=== PATIENT | male | born 1980 | race American Indian/Alaskan Native ===

== ENCOUNTER 2017-06-16 01:46 | Inpatient (IN) | payer SELFPAY ==
[2017-06-16] MEDS ORDERED: NACL 0.9% 1000 ML 1,000 ML IV ONE ×2 (02:17→02:30)
[2017-06-16] MEDS ORDERED: BABY ASPIRIN PO ONE ×2 (02:18→03:55)
--- NOTE | 2017-06-16 02:27 | Emergency Department Report ---
ED Chest Pain HPI - General Stated Complaint: BODYACHE Time Seen by Provider: 06/16/17 02:15 Source: patient Mode of arrival: Wheelchair Limitations: No Limitations - History of Present Illness Initial Comments: 36-year-old male presents to the emergency department through triage with complaint of some midsternal right-sided chest pain that started about one hour prior to presentation. He did not take anything for her symptoms prior to presentation. He is visiting here from [facility], where he has a primary care physician. He denies any other past medical history. He is a tobacco smoker but denies any illicit drug use. He denies any family history of early heart attacks or cardiac events. Heart Score - HEART Score History: Highly suspicious EKG: Significant ST-depression Age: < 45 Risk factors: 1-2 risk factors Troponin: < normal limit HEART Score: 5 - Critical Actions Critical Actions: 4-6 pts:12-16.6% risk of adverse cardiac event. Should be admitted ED Review of Systems ROS: Stated complaint: BODYACHE Other details as noted in HPI Comment: All other systems reviewed and negative Constitutional: denies: chills, fever Eyes: denies: eye pain, eye discharge, vision change ENT: denies: ear pain, throat pain Respiratory: denies: cough, shortness of breath, wheezing Cardiovascular: chest pain Gastrointestinal: nausea, vomiting. denies: abdominal pain, diarrhea Genitourinary: denies: urgency, dysuria Musculoskeletal: denies: back pain, joint swelling, arthralgia Skin: denies: rash, lesions Neurological: denies: headache, weakness, paresthesias ED Past Medical Hx - Past Medical History Previous Medical History?: No - Surgical History Past Surgical History?: Yes Hx Appendectomy: Yes - Social History Smoking Status: Current Some Day Smoker Substance Use Type: Alcohol ED Physical Exam - General Limitations: No Limitations - Other Other exam information: GENERAL: The patient is well-developed well-nourished. Patient appears very uncomfortable. HENT: Normocephalic. Atraumatic. Patient has moist mucous membranes. EYES: Extraocular motions are intact. Pupils equal reactive to light bilaterally. NECK: Supple. Trachea is midline. CHEST/LUNGS: Clear to auscultation. There is no respiratory distress noted. HEART/CARDIOVASCULAR: Regular. There is no tachycardia. There is no murmur. ABDOMEN: Abdomen is soft, nontender. Patient has normal bowel sounds. There is no abdominal distention. SKIN: Skin is warm and dry. NEURO: The patient is awake, alert, and oriented. The patient is cooperative. The patient has no focal neurologic deficits. The patient has normal speech. MUSCULOSKELETAL: There is no tenderness or deformity. There is no limitation range of motion. There is no evidence of acute injury. ED Course Vital Signs 06/16/17 06/16/17 02:22 02:38 Temperature 97.9 F Pulse Rate 95 H 92 H Respiratory 16 26 H Rate Blood Pressure 125/90 125/90 [Right] O2 Sat by Pulse 99 98 Oximetry - Consultations Consultation #1: A code STEMI was called at 2:17 AM. We are attempting to get in touch with the conservation scientist but there have been multiple phone calls made without any answer and the voice mailbox is full as well. We are attempting to get in touch through the cardiology office. 06/16/17 02:26 We were just now able to get in touch with the conservation scientist who looked at the EKG and agrees that appears consistent with STEMI and we'll proceed with getting the patient to the Utilization Supervisor. 06/16/17 02:34 JOSH score - Josh Score Age > 65: (0) No Aspirin use within the Past 7 Days: (0) No 3 or more CAD Risk Factors: (0) No 2 or more Angina events in past 24 hrs: (1) Yes Known CAD with more than 50% Stenosis: (1) Yes Elevated Cardiac Markers: (0) No ST Deviation Greater than 0.5mm: (1) Yes JOSH Score: 3 ED Medical Decision Making - Lab Data Result diagrams: 06/16/17 02:33 06/16/17 02:33 - EKG Data -: EKG Interpreted by Me EKG shows normal: sinus rhythm, axis, intervals, QRS complexes (Q waves to the septal leads), ST-T waves (SC elevation to the anterior and lateral leads there is some ST depression to the inferior leads 3 and aVF) Rate: normal - EKG Data When compared to previous EKG there are: previous EKG unavailable Interpretation: acute MO - Radiology Data Radiology results: image reviewed interpreted by me: Chest x-ray does not show any acute process. There are no pleural effusions, obvious pneumonia and there is no pneumothorax. - Medical Decision Making Patient presents with acute right-sided chest pain. EKG appears consistent with anterolateral ST elevation MO. Chest x-ray did not show any acute process. He was given Plavix 300, aspirin 325 mg, 2 mg of morphine, supplemental oxygen, low dose nitro drip, and a heparin bolus and drip. Once we got in touch with the conservation scientist and the microbiological laboratory technician team was in place, the patient was transferred to the Utilization Supervisor where it appears that he has gotten name balloon angioplasty and drug-eluting stent placement. Patient will go to the ICU. - Differential Diagnosis MO, costochondritis, pneumonia, pneumothorax Critical Care Time: Yes Critical care time in (mins) excluding proc time.: 31 Critical care attestation.: If time is entered above; I have spent that time in minutes in the direct care of this critically ill patient, excluding procedure time. Critical care time was spent on this patient and during his initial evaluation, multiple re-evaluations, ordering an interpretation of labs and imaging, EKG interpretation, managing the code STEMI, discussion with the conservation scientist, discussion with the patient and his family. ED Disposition Clinical Impression: ST elevation (STEMI) myocardial infarction Qualifiers: Involved coronary artery: unspecified coronary artery Qualified Code(s): I21.3 - ST elevation (STEMI) myocardial infarction of unspecified site Chest pain Qualifiers: Chest pain type: chest pain due to myocardial ischemia Ischemic chest pain type : unspecified angina pectoris type Qualified Code(s): I20.9 - Angina pectoris, unspecified Disposition: DC-09 OP ADMIT IP TO THIS HOSP Is pt being admited?: Yes Condition: Serious Instructions: Chest Pain (ED) Time of Disposition: 03:56
[2017-06-16] MEDS ORDERED: TRIDIL DRIP 50MG/250ML 50 MG/250 ML BOTTLE IV ONE (02:30)
[2017-06-16] MEDS ORDERED: MORPHINE IV PRN (02:30)
[2017-06-16] MEDS ORDERED: MORPHINE ONE (02:32)
[2017-06-16] MEDS ORDERED: HEPARIN 10,000 UNITS/10 ML IV ONE (02:38)
--- NOTE | 2017-06-16 02:44 | XRay Report ---
FINAL REPORT EXAM: XR CHEST 1V AP HISTORY: chest pain COMPARISON: None available. FINDINGS: Frontal view(s) of the chest obtained. Cardiac silhouette within normal limits. No gross consolidation or effusion. No pneumothorax. IMPRESSION: No grossly acute findings.
[2017-06-16] MEDS: HEPARIN/ 0.45% NACL-25,000 UNIT/500 ML 25,000 UNIT/500 ML BAG IV SCH (02:45)
[2017-06-16] MEDS ORDERED: TRIDIL DRIP 50MG/250ML 50 MG/250 ML BOTTLE ONE (02:45)
[2017-06-16 02:47] LABS: Hematocrit 44.8 % (35.5-45.6); Hemoglobin 15.4 gm/dl (11.8-15.2); Mean Corpuscular HGB Conc 35 % (32-34); Mean Corpuscular Hemoglobin 33 pg (28-32); Mean Corpuscular Volume 96 fl (84-94); Platelet Count 265 K/mm3 (140-440); Red Blood Count 4.68 M/mm3 (3.65-5.03); Red Cell Distribution Width 13.6 % (13.2-15.2); White Blood Count 12.1 K/mm3 (4.5-11.0)
[2017-06-16 03:03] LABS: INR 0.94 (0.87-1.13)
[2017-06-16 03:10] LABS: Partial Thromboplastin Time 23.2 Sec. (24.2-36.6)
[2017-06-16] MEDS ORDERED: XYLOCAINE 2% INFILTRATI ONE (03:10)
[2017-06-16] MEDS ORDERED: HEPARIN/NS 5000 UNIT/500ML(CATH LAB) 1,000 ML IR ONE (03:10)
[2017-06-16] MEDS ORDERED: CALAN ONE (03:10)
[2017-06-16] MEDS ORDERED: NITROGLYCERIN SYRINGE 3 ML ONE (03:11)
[2017-06-16] MEDS: HEPARIN 10,000 UNITS/10 ML ONE ×2 (03:22→04:00)
[2017-06-16] MEDS: SUBLIMAZE ONE ×2 (03:22→03:24)
[2017-06-16] MEDS: VERSED ONE ×2 (03:22→03:24)
[2017-06-16 03:36] LABS: Anion Gap TNR mmol/L; BUN/Creatinine Ratio TNR; Blood Urea Nitrogen TNR mg/dL (9-20); Calcium TNR mg/dL (8.4-10.2); Carbon Dioxide TNR mmol/L (22-30); Chloride TNR mmol/L (98-107); Creatine Kinase TNR units/L (55-170); Creatine Kinase MB TNR ng/mL (0.0-4.0); Glucose TNR mg/dL (75-100); Potassium TNR mmol/L (3.6-5.0); Sodium TNR mmol/L (137-145)
[2017-06-16] MEDS ORDERED: NACL 0.9% 250ML 250 ML ONE (03:40)
[2017-06-16] MEDS: REOPRO ONE ×2 (03:48→03:49)
[2017-06-16] MEDS ORDERED: REOPRO 9 MG in NACL 0.9% 250ML 245.5 ML IV SCH (03:48)
[2017-06-16] MEDS ORDERED: NITROSTAT SL ONE (03:55)
[2017-06-16] MEDS ORDERED: NACL 0.9% 500 ML 0 ML ONE (03:57)
[2017-06-16] MEDS ORDERED: NACL 0.9% 1000 ML 1,000 ML ONE (03:58)
[2017-06-16] MEDS ORDERED: PLAVIX ONE ×2 (04:24→14:44)
[2017-06-16] MEDS ORDERED: HEPARIN 10,000 UNITS/10 ML ONE ×2 (04:24→14:44)
[2017-06-16] MEDS ORDERED: NORCO 5/325 PO PRN (04:45)
[2017-06-16] MEDS ORDERED: ULTRAM PO PRN (04:45)
[2017-06-16] MEDS ORDERED: ZESTRIL PO ONE ×2 (04:49→12:00)
[2017-06-16 05:21] LABS: Creatine Kinase MB 14.4 ng/mL (0.0-4.0)
[2017-06-16 06:15] LABS: Basophils % (Manual) 0 % (0.0-1.8); Blastocytes % (Manual) 0 %
[2017-06-16 06:16] LABS: Anisocytosis Few; Diff Status Complete
[2017-06-16] MEDS: NACL 0.9% 1000 ML 1,000 ML IV SCH ×2 (06:30→17:04)
--- NOTE | 2017-06-16 08:03 | History and Physical Report ---
HISTORY OF PRESENT ILLNESS: The patient is a 36-year-old gentleman, who was having a birthday libertarian around 1:00 AM, he started not feeling well, could not breathe well. He apparently was not smoking or drinking, not using any drugs. He requested the family to take him to the hospital because he started not feeling well and is having right-sided chest pain and when he was evaluated at the Emergency Room, EKG showed significant ST elevation up to 4-5 mm in the anterior leads consistent with acute anteroseptal injury. Hence, the STEMI protocol was followed . PAST MEDICAL HISTORY: Essentially unremarkable except for appendectomy a few years ago. No history of hypertension or diabetes mellitus or previous cardiac history. SOCIAL HISTORY: The patient smokes cigars, but drinks alcohol once in a while. No history of drug abuse. The patient did not have any previous cardiac symptoms. REVIEW OF SYSTEMS: The patient denies any previous cardiac history. No history of hypertension or diabetes mellitus, pulmonary or renal problems. Only significant hospitalization is for appendectomy. No history of pulmonary emboli or DVT. No history of gastric ulcers or GI bleed. No history of strokes or seizures. Denied any fever or coughing. He was doing well up to 1 this morning at a birthday libertarian without any previous symptoms of chest pain or shortness of breath or palpitations or dizziness or syncope. No previous history of syncope. PHYSICAL EXAMINATION: GENERAL: The patient is complaining of being uncomfortable, complaining of pain. HEENT: Conjunctivae pink. Sclerae anicteric. NECK: Supple. Difficult to evaluate for JVD. HEART: Regular. LUNGS: Clear. ABDOMEN: Benign. EXTREMITIES: Without edema. NEUROLOGIC: Alert, oriented x 3. EKG as mentioned above showed significant ST elevations across all the anterior leads and rhythm being sinus consistent with acute anteroseptal injury. The patient was taken emergently to the cardiac catheterization laboratory. He had occluded high mid LAD and required a balloon angioplasty and stenting along with giving Reopro for significant amount of thrombus noted. Finally, good result was obtained. The patient has 2 stents in the high mid LAD and mid LAD, drug-eluting stent. JOSH 0 flow was converted to JOSH 3 flow. Excellent result was obtained. No significant disease in the circumflex or RCA. However, there is almost akinesis of the distal one-third of the anterior wall and apex. The rest of the ventricle was hyperdynamic, ejection fraction 40% to 45%. At this time, the patient's rhythm has been stable throughout the procedure. The radial access was used. The patient was given Reopro because of large amount of thrombus noted. This will be continued for 12 hours. The patient will be continued on heparin for 24 hours. The patient was given aspirin, Plavix, and will be started on atorvastatin 80 mg, metoprolol and lisinopril will be given depending on the blood pressure. He will be admitted to the CCU. The patient is pain free at the time after the procedure. The procedure was uncomplicated. He admitted to CCU. Discussed with the patient's fiancee in detail the diagnosis and need for hospitalization, they understand. JOB# [id number] DELMA/IVANA ALCANTAR
--- NOTE | 2017-06-16 08:44 | Cardiac Catherization Report ---
CARDIAC CATHETERIZATION AND CORONARY INTERVENTION REPORT INDICATION FOR PROCEDURE: The patient is a 36-year-old gentleman with no previous cardiac history, was at a birthday democrat, started having acute symptoms of chest pain, not able to breath and not feeling well, was evaluated in the Emergency Room at which time he was noted to have significant ST elevations in the anterior leads consistent with acute anteroseptal injury and the patient was brought to the catheterization laboratory on an emergency basis as a part of the STEMI protocol. PAST MEDICAL HISTORY: Essentially unremarkable except for history of appendectomy. He smokes cigars, but no history of drug abuse or significant alcohol use. He denied any previous cardiac history. DESCRIPTION OF CARDIAC CATHETERIZATION: The patient was brought to the catheterization laboratory in a fasting condition. The right wrist area and forearm thoroughly cleansed with Betadine solution. The patient is with considerable discomfort, was given IV Versed and fentanyl. Subsequently, right radial artery puncture was made using 21-gauge arterial puncture needle followed by placement of a 6-Turkish sheath. Left coronary angiography was performed using EBU 3.5 guiding catheter and right coronary angiography was performed using multipurpose catheter and left ventriculogram was performed using multipurpose catheter. Following findings were noted on cardiac catheterization. HEMODYNAMICS: 1. Opening aortic pressure 112/76. Left ventricular pressure 139/41. No gradient across the aortic valve. Estimated ejection fraction 40-45%. 2. Left ventriculogram done in ANDERSON projection showed akinesis of the distal part of the anterior wall and apex. Rest of the ventricle is hyperdynamic. Ejection fraction as mentioned above 40-45%. Mitral regurgitation could not be evaluated. 3. Right coronary artery dominant vessel arises normally from right coronary cusp, angiographically smooth and normal. 4. Left coronary artery arises normally from left coronary cusp. Left main is short, immediately dividing to LAD and circumflex arteries. Circumflex nondominant artery. Circumflex artery and its branch are angiographically smooth without significant disease. 5. LAD is occluded after a medium sized proximal diagonal branch. Distal vessel is not visualized initially. After, balloon angioplasty and stent placement was performed. CORONARY INTERVENTION OF THE LAD: Diagnostic angiograms as a part of the acute STEMI protocol showed occluded LAD in the high mid LAD with no visualization of the distal vessel. This lesion is after a medium sized diagonal branch. Distal vessel is not visualized. The patient was given heparin as anticoagulant. A 0.014 inch Madeline XT guidewire as well advanced into the distal LAD. Subsequently, there was noted to be a significant amount of clot and mid LAD is dilated with 2.7 x 15 mm balloon with establishment of JOSH 3 flow; however, significant clot was noted. Initially, a 3.0 x 18 mm Resolute stent was inserted in the mid LAD. This gave JOSH 3 flow; however, there is a significant amount of thrombus in the mid LAD, hence was started on ReoPro, which markedly improved the thrombus, but still persistent filling defect was noted. The patient was dilated with stent balloon; however, even after stent balloon dilation, there is a filling defect, hence a 3.0 x 8 mm Resolute stent, was dilated to 11 atmospheres with very good result. Final angiogram showed excellent result with no residual stenosis. JOSH 3 flow was noted. No complications of dissection or perforation noted. Considering patient has significant thrombus, the patient to be continued on ReoPro. The patient received Plavix as anticoagulant. The patient will be continued on IV heparin. During the entire procedure, the patient is restless, but hemodynamically stable. No arrhythmias were noted. FINAL IMPRESSION: Uncomplicated drug-eluting stent placement in the high mid left anterior descending/mid left anterior descending. Two stents were inserted, 3.0 x 18 mm and 3.0 x 8 mm Resolute stents. High burden of clot was noted and was started on ReoPro. The patient tolerated the procedure well. However, JOSH 3 flow was noted with no complications at the end of the procedure. JOB# [id number] DELMA/IVANA
[2017-06-16] MEDS ORDERED: REOPRO IV SCH ×2 (09:00)
[2017-06-16 09:37] LABS: Creatine Kinase MB 192.2 ng/mL (0.0-4.0)
[2017-06-16] MEDS ORDERED: PLAVIX PO SCH (10:00)
[2017-06-16 10:20] LABS: BUN/Creatinine Ratio 11; Blood Urea Nitrogen 8 mg/dL (9-20); Calcium 7.7 mg/dL (8.4-10.2); Chloride 103.2 mmol/L (98-107); Glucose 107 mg/dL (75-100); Sodium 137 mmol/L (137-145)
--- NOTE | 2017-06-16 11:12 | Progress Note ---
Assessment and Plan Acute anteroseptal CT,s/p PCI of high mid LAD/mid LAD with CHRIS,akinetic dital anterior wall,JOSH 3 flow post procedure,EF 40-45% and dominant RCA/circ showed no significant disease. Doing well post procedure,continue to monitor. Subjective Date of service: 06/16/17 Interval history: Patient comfortable,no chest pain.Had short run of non sustained VT Objective Vital Signs Temp Pulse Resp BP BP Pulse Ox 06/16/17 10:10 89 16 109/66 94 06/16/17 10:04 94 06/16/17 10:00 93 H 15 109/66 93 06/16/17 09:46 113 H 12 113/65 94 06/16/17 09:30 91 H 15 113/65 93 06/16/17 09:16 90 15 117/68 93 06/16/17 09:02 97 H 20 117/68 97 06/16/17 09:00 111 H 18 117/68 96 06/16/17 08:46 93 H 15 113/66 97 06/16/17 08:30 92 H 14 116/72 94 06/16/17 08:16 118 H 15 116/72 95 06/16/17 08:00 97.5 F L 96 H 14 116/72 96 06/16/17 07:46 97 H 15 124/72 94 06/16/17 07:30 97 H 16 124/72 95 06/16/17 07:16 97 H 15 124/72 94 06/16/17 07:15 101 H 16 124/72 96 06/16/17 07:00 102 H 16 124/72 96 06/16/17 06:46 102 H 16 97 06/16/17 06:40 99 H 15 96 06/16/17 05:45 14 98 06/16/17 05:35 98.1 F 83 22 113/65 98 06/16/17 05:03 98.1 F 97 06/16/17 04:14 98 F 92 H 26 H 125/90 98 06/16/17 02:46 75 20 113/74 98 06/16/17 02:38 92 H 26 H 125/90 98 06/16/17 02:30 95 H 17 125/90 97 06/16/17 02:22 97.9 F 95 H 16 125/90 99 06/16/17 02:19 92 H 12/17/17 02:18 15 06/16/17 02:06 89 06/16/17 01:49 97.6 F 90 H 119/81 - Physical Examination General: Appears Well Neck: Positive: trachea midline Cardiac: Positive: Reg Rate and Rhythm, S3, S4 Neuro: Positive: Grossly Intact Abdomen: Positive: Unremarkable Incision: Cardiac Cath Site (unremarkable.) Extremities: Absent: edema - Labs and Meds Cardiac Enzymes 06/16/17 06/16/17 06/16/17 Range/Units 02:33 05:18 08:49 CK-MB (CK-2) TNR 14.4 H 192.2 H Coagulation 06/16/17 Range/Units 02:33 PT 13.0 (12.2-14.9) Sec. INR 0.94 (0.87-1.13) APTT 23.2 L (24.2-36.6) Sec. Lipids 06/16/17 Range/Units 05:18 Triglycerides 37 (2-149) mg/dL Cholesterol 126 (50-199) mg/dL HDL Cholesterol 38 L (40-59) mg/dL Cholesterol/HDL Ratio 3.31 % CBC 06/16/17 Range/Units 02:33 WBC 12.1 H (4.5-11.0) K/mm3 RBC 4.68 (3.65-5.03) M/mm3 Hgb 15.4 H (11.8-15.2) gm/dl Hct 44.8 (35.5-45.6) % Plt Count 265 (140-440) K/mm3 Lymph # [employer] Supervisor Comprehensive Metabolic Panel 06/16/17 06/16/17 Range/Units 02:33 09:50 Sodium TNR 137 Potassium TNR Chloride TNR 103.2 Carbon Dioxide TNR BUN TNR 8 L Creatinine TNR 0.7 L Glucose TNR 107 H Calcium TNR 7.7 L
[2017-06-16] MEDS: LOPRESSOR PO SCH ×2 (11:35→21:29)
[2017-06-16 12:18] LABS: Anion Gap 15 mmol/L; Carbon Dioxide 26 mmol/L (22-30)
[2017-06-16] MEDS ORDERED: NACL 0.9% 1000 ML ONE (14:44)
[2017-06-16] MEDS ORDERED: HEPARIN/ 0.45% NACL-25,000 UNIT/500 ML ONE (14:44)
[2017-06-16] MEDS ORDERED: SODIUM CHLORIDE FLUSH SYRINGE 10 ML IV ONE (14:44)
[2017-06-16] MEDS ORDERED: BABY ASPIRIN ONE (14:44)
--- NOTE | 2017-06-16 15:51 | Event Note ---
Date: 06/16/17 36-year-old male presents to the emergency department through triage with complaint of some midsternal right-sided chest pain that started about one hour prior to presentation. He did not take anything for her symptoms prior to presentation. He is visiting here from [facility], where he has a primary care physician. He denies any other past medical history. Surgical history is significant for appendectomy. He is a tobacco smoker but denies any illicit drug use. He denies any family history of early heart attacks or cardiac events. Acute anteroseptal [place],s/p PCI of high mid LAD/mid LAD with CHRIS,akinetic dital anterior wall,JOSH 3 flow post procedure,EF 40-45% and dominant RCA/circ showed no significant disease. Doing well post procedure. Currently on heparin infusion and is in the ICU for ongoing monitoring post PCI. Denies any chest pain, no shortness of breath, no fevers or chills. Feels fine. Patient seen and examined. Vitals, labs, medications, chart reviewed. No new events ROS: Constitutional: denies: chills, fever Eyes: denies: eye pain, eye discharge, vision change ENT: denies: ear pain, throat pain Respiratory: denies: cough, shortness of breath, wheezing Cardiovascular: chest pain Gastrointestinal: nausea, vomiting. denies: abdominal pain, diarrhea Genitourinary: denies: urgency, dysuria Musculoskeletal: denies: back pain, joint swelling, arthralgia Skin: denies: rash, lesions Neurological: denies: headache, weakness, paresthesias PHYSICAL EXAMINATION GENERAL: The patient is well-developed well-nourished. Not in any distress Heavily tatooed HENT: Normocephalic. Atraumatic. Patient has moist mucous membranes. EYES: Extraocular motions are intact. Pupils equal reactive to light bilaterally. NECK: Supple. Trachea is midline. CHEST/LUNGS: Clear to auscultation. There is no respiratory distress noted. HEART/CARDIOVASCULAR: Regular. There is no tachycardia. There is no murmur. ABDOMEN: Abdomen is soft, nontender. Patient has normal bowel sounds. There is no abdominal distention. SKIN: Skin is warm and dry. NEURO: The patient is awake, alert, and oriented. The patient is cooperative. The patient has no focal neurologic deficits. The patient has normal speech. MUSCULOSKELETAL: There is no tenderness or deformity. There is no limitation range of motion. There is no evidence of acute injury. Right wrist no hematoma, pressure dressing applied LABS Reviewed IMAGING Reviewed ASSESSMENT/PLAN 1.Acute anteroseptal [place] -s/p PCI of high mid LAD/mid LAD with CHRIS,akinetic dital anterior wall, JOSH 3 flow post procedure, EF 40-45% and dominant RCA/circ showed no significant disease. -Cardiology following 2. Tobacco abuse disorder -Smoking cessation counselling done at the bedside for >15 mins. Cardioprotective measures Discussed lifestyle modifications 3. Continue to monitor in the ICU
[2017-06-16 17:52] LABS: Urine Drugs of Abuse Note Disclamer
[2017-06-16 18:08] LABS: Bilirubin,Urine NEG (Negative); Blood,Urine NEG (Negative); Ketones,Urine NEG (Negative); Leukocyte Esterase,Urine NEG (Negative); Mucus,Urine FEW /HPF; Nitrite,Urine NEG (Negative); Protein,Urine <15 mg/dL mg/dL (Negative); Urobilinogen,Urine < 2.0 mg/dL (<2.0)
[2017-06-17] MEDS: HEPARIN/ 0.45% NACL-25,000 UNIT/500 ML 25,000 UNIT/500 ML BAG IV SCH (02:09)
[2017-06-17] MEDS: NACL 0.9% 1000 ML 1,000 ML IV SCH (02:10)
--- NOTE | 2017-06-17 09:33 | Progress Note ---
Assessment and Plan Assessment: S/p Acute anteroseptal STEMI - s/p PCI of high mid LAD/mid LAD with CHRIS, akinetic dital anterior wall, JOSH 3 flow post procedure, EF 40-45% and dominant RCA/circ showed no significant disease. CAD NSVT Plan: D/c heparin gtt. Cont all other current cardiac medical management. Currently stable cardiac status. Pt may tx out of ICU to telemetry. Possible d/c home in AM. Assessment and plan reviewed with pt at bedside. The patient has been seen in conjunction with Dr. NHUNG La who agrees with the assessment and plan of care. Subjective Date of service: 06/17/17 Principal diagnosis: Acute anteroseptal STEMI Interval history: Pt resting comfortably in bed, no current complaints. Tele reviewed with no acute events overnight. VSS. Objective Last Vital Signs Temp 98.2 F 06/17/17 08:00 Pulse 75 06/17/17 09:35 Resp 20 06/17/17 08:30 BP 110/68 06/17/17 09:35 Pulse Ox 97 06/17/17 08:30 - Physical Examination General: Appears Well Neck: Positive: neck supple Cardiac: Positive: Reg Rate and Rhythm, S1/S2 Lungs: Positive: clear to auscultation Neuro: Positive: Grossly Intact Abdomen: Positive: Unremarkable. Negative: Tender Incision: Cardiac Cath Site (right radial c/d/i, no evidence of bleeding or hematoma, unremarkable) Musculoskeletal: No Fluid Collection, No Pain, Normal Range of Motion Extremities: Absent: edema - Labs and Meds Cardiac Enzymes 06/16/17 Range/Units 08:49 CK-MB (CK-2) 192.2 H (0.0-4.0) ng/mL Comprehensive Metabolic Panel 06/16/17 Range/Units 09:50 Sodium 137 (137-145) mmol/L Potassium 4.0 (3.6-5.0) mmol/L Chloride 103.2 (98-107) mmol/L Carbon Dioxide 26 (22-30) mmol/L BUN 8 L (9-20) mg/dL Creatinine 0.7 L (0.8-1.5) mg/dL Glucose 107 H (75-100) mg/dL Calcium 7.7 L (8.4-10.2) mg/dL - Imaging and Cardiology EKG: report reviewed, image reviewed Echo: report reviewed Cardiac cath: report reviewed ( s/p PCI of high mid LAD/mid LAD with CHRIS, akinetic dital anterior wall,JOSH 3 flow post procedure,EF 40-45% and dominant RCA) - Telemetry EKG Rhythm: Sinus Rhythm
[2017-06-17] MEDS: PLAVIX PO SCH (09:34)
[2017-06-17] MEDS: LOPRESSOR PO SCH ×2 (09:35→21:26)
[2017-06-17 10:04] LABS: Hematocrit 39.6 % (35.5-45.6); Hemoglobin 13.5 gm/dl (11.8-15.2); Mean Corpuscular HGB Conc 34 % (32-34); Mean Corpuscular Hemoglobin 33 pg (28-32); Mean Corpuscular Volume 96 fl (84-94); Platelet Count 213 K/mm3 (140-440); Red Blood Count 4.13 M/mm3 (3.65-5.03); Red Cell Distribution Width 13.6 % (13.2-15.2)
--- NOTE | 2017-06-17 10:15 | Consultation ---
History of Present Illness Consult date: 06/17/17 Medications and Allergies Allergies Allergy/AdvReac Type Severity Reaction Status Date / Time No Known Allergies Allergy Unverified 06/16/17 03:55 Active Meds: Active Medications Acetaminophen/Hydrocodone Bitart ([place] 5/325) 1 each PO Q4H PRN PRN Reason: Pain, Moderate (4-6) Aspirin (Aspirin) 325 mg PO QDAY [facility] Atorvastatin Calcium (Lipitor) 80 mg PO QHS [facility] Last Admin: 06/16/17 21:28 Dose: 80 mg Clopidogrel Bisulfate (Plavix) 75 mg PO QDAY [facility] Last Admin: 06/17/17 09:34 Dose: 75 mg Influenza Virus Vaccine Quadrival (Fluarix Quad [id number](36 Mos+) 0.5 ml IM .ONCE ONE Stop: 06/17/17 12:01 Metoprolol Tartrate (Lopressor) 50 mg PO BID [facility] Last Admin: 06/17/17 09:35 Dose: 50 mg Morphine Sulfate (Morphine) 2 mg IV Q5MIN PRN PRN Reason: Chest Pain Tramadol HCl (Ultram) 50 mg PO Q4H PRN PRN Reason: Pain, Mild (1-3) Physical Examination Vital signs: Vital Signs Temp Resp BP 97.6 F 90 H 119/81 06/16/17 01:49 06/16/17 01:49 06/16/17 01:49 Results - Laboratory Findings CBC and BMP: 06/17/17 09:44 06/16/17 09:50 PT/INR, D-dimer PT 13.0 Sec. (12.2-14.9) 06/16/17 02:33 INR 0.94 (0.87-1.13) 06/16/17 02:33 Abnormal lab findings: Abnormal Labs 06/16/17 06/16/17 06/16/17 02:33 02:33 05:18 WBC 12.1 H Hgb 15.4 H MCV 96 H MCH 33 H MCHC 35 H Eosinophils % (Manual) 9.0 H Eosinophils # (Manual) 1.1 H APTT 23.2 L Heparin Anti-Xa Level BUN Creatinine Glucose Calcium Total Creatine Kinase 266 H CK-MB (CK-2) 14.4 H CK-MB (CK-2) Rel Index 5.4 H Troponin T 0.177 H* HDL Cholesterol 38 L Ur Specific [place] 06/16/17 06/16/17 06/16/17 08:49 09:50 11:31 WBC Hgb MCV MCH MCHC Eosinophils % (Manual) Eosinophils # (Manual) APTT Heparin Anti-Xa Level BUN 8 L Creatinine 0.7 L Glucose 107 H Calcium 7.7 L Total Creatine Kinase 2389 H CK-MB (CK-2) 192.2 H CK-MB (CK-2) Rel Index 8.0 H Troponin T 2.400 H* D 5.350 H* D HDL Cholesterol Ur Specific [place] 06/16/17 06/16/17 06/16/17 11:31 17:38 17:44 WBC Hgb MCV MCH MCHC Eosinophils % (Manual) Eosinophils # (Manual) APTT Heparin Anti-Xa Level 0.81 H BUN Creatinine Glucose Calcium Total Creatine Kinase CK-MB (CK-2) CK-MB (CK-2) Rel Index Troponin T 3.970 H* D HDL Cholesterol Ur Specific [place] 1.031 H 06/17/17 09:44 WBC 12.0 H Hgb MCV 96 H MCH 33 H MCHC Eosinophils % (Manual) Eosinophils # (Manual) APTT Heparin Anti-Xa Level BUN Creatinine Glucose Calcium Total Creatine Kinase CK-MB (CK-2) CK-MB (CK-2) Rel Index Troponin T HDL Cholesterol Ur Specific [place]
[2017-06-17 10:34] LABS: Creatine Kinase MB 42.2 ng/mL (0.0-4.0)
[2017-06-17 10:35] LABS: Anion Gap 16 mmol/L; BUN/Creatinine Ratio 11; Blood Urea Nitrogen 9 mg/dL (9-20); Calcium 8.3 mg/dL (8.4-10.2); Carbon Dioxide 24 mmol/L (22-30); Chloride 105.2 mmol/L (98-107); Creatine Kinase 1159 units/L (55-170); Glucose 117 mg/dL (75-100); Potassium 3.4 mmol/L (3.6-5.0); Sodium 142 mmol/L (137-145)
--- NOTE | 2017-06-17 11:00 | Progress Note ---
Assessment and Plan Acute anteroseptal VA (STEMI) Tobacco abuse disorder - s/p PCI - per cardiology recommendations -Smoking cessation counselling done at the bedside for >15 mins. - continue DMOD's per cardiology re: B-blockers, KEYUR-I, andti-lipid therapy - Discussed lifestyle modifications ....d/c planning per attending Subjective Date of service: 06/17/17 Principal diagnosis: Acute anteroseptal STEMI Interval history: Patient is seen today for: Acute STEMI to LAD; HFrEF Seen and examined at bedside; 24hour events reviewed; nursing and respiratory care staff consulted; no adverse overnight events reported to me; resting peacefully; feels better; denies acute chest pains or increased SOB Objective Vital Signs - 12hr 06/16/17 06/16/17 06/17/17 23:30 23:59 00:00 Temperature 98.9 F Pulse Rate 65 72 Pulse Rate [ 80 From Monitor] Respiratory 17 18 Rate Blood Pressure 101/50 107/60 O2 Sat by Pulse 95 96 Oximetry 06/17/17 06/17/17 06/17/17 00:30 01:00 01:30 Temperature Pulse Rate 71 69 70 Pulse Rate [ From Monitor] Respiratory 19 18 17 Rate Blood Pressure 113/68 103/62 113/68 O2 Sat by Pulse 97 98 97 Oximetry 06/17/17 06/17/17 06/17/17 02:00 02:30 03:00 Temperature Pulse Rate 68 71 69 Pulse Rate [ From Monitor] Respiratory 16 17 16 Rate Blood Pressure 102/74 107/72 93/51 O2 Sat by Pulse 98 98 93 Oximetry 06/17/17 06/17/17 06/17/17 03:30 04:00 04:30 Temperature Pulse Rate 81 76 74 Pulse Rate [ 83 From Monitor] Respiratory 17 18 20 Rate Blood Pressure 103/68 107/66 108/68 O2 Sat by Pulse 95 96 96 Oximetry 06/17/17 06/17/17 06/17/17 05:00 05:30 06:00 Temperature Pulse Rate 68 70 87 Pulse Rate [ From Monitor] Respiratory 16 18 18 Rate Blood Pressure 108/68 108/68 108/68 O2 Sat by Pulse 98 96 97 Oximetry 06/17/17 06/17/17 06/17/17 06:30 07:00 07:30 Temperature Pulse Rate 80 75 101 H Pulse Rate [ From Monitor] Respiratory 16 16 21 Rate Blood Pressure 111/69 108/70 106/61 O2 Sat by Pulse 75 L 100 Oximetry 06/17/17 06/17/17 06/17/17 08:00 08:30 09:35 Temperature 98.2 F Pulse Rate 73 76 75 Pulse Rate [ 75 From Monitor] Respiratory 13 20 Rate Blood Pressure 103/68 106/65 110/68 O2 Sat by Pulse 97 97 Oximetry 06/17/17 10:55 Temperature Pulse Rate Pulse Rate [ From Monitor] Respiratory Rate Blood Pressure O2 Sat by Pulse 96 Oximetry Constitutional: no acute distress, alert Eyes: non-icteric ENT: oropharynx moist Neck: supple, no lymphadenopathy, no JVD, other (no thyromegaly) Effort: normal Ascultation: Bilateral: clear Percussion: Bilateral: not dull Cardiovascular: regular rate and rhythm, other (No rubs) Gastrointestinal: normoactive bowel sounds, soft, non-tender, non-distended, other (No palpable HSM) Integumentary: normal Extremities: no cyanosis, no edema, pulses normal, no ischemia or petechiae Neurologic: normal mental status, non-focal exam, pupils equal and round, motor strength normal and Psychiatric: mood appropriate, affect normal CBC and BMP: 06/17/17 09:44 06/17/17 09:44 ABG, PT/INR, D-dimer: PT/INR, D-dimer PT 13.0 Sec. (12.2-14.9) 06/16/17 02:33 INR 0.94 (0.87-1.13) 06/16/17 02:33 Abnormal lab findings: Abnormal Labs 06/16/17 06/16/17 06/16/17 02:33 02:33 05:18 WBC 12.1 H Hgb 15.4 H MCV 96 H MCH 33 H MCHC 35 H Eosinophils % (Manual) 9.0 H Eosinophils # (Manual) 1.1 H APTT 23.2 L Heparin Anti-Xa Level Potassium BUN Creatinine Glucose Calcium Total Creatine Kinase 266 H CK-MB (CK-2) 14.4 H CK-MB (CK-2) Rel Index 5.4 H Troponin T 0.177 H* HDL Cholesterol 38 L Ur Specific [place] 06/16/17 06/16/17 06/16/17 08:49 09:50 11:31 WBC Hgb MCV MCH MCHC Eosinophils % (Manual) Eosinophils # (Manual) APTT Heparin Anti-Xa Level Potassium BUN 8 L Creatinine 0.7 L Glucose 107 H Calcium 7.7 L Total Creatine Kinase 2389 H CK-MB (CK-2) 192.2 H CK-MB (CK-2) Rel Index 8.0 H Troponin T 2.400 H* D 5.350 H* D HDL Cholesterol Ur Specific [place] 06/16/17 06/16/17 06/16/17 11:31 17:38 17:44 WBC Hgb MCV MCH MCHC Eosinophils % (Manual) Eosinophils # (Manual) APTT Heparin Anti-Xa Level 0.81 H Potassium BUN Creatinine Glucose Calcium Total Creatine Kinase CK-MB (CK-2) CK-MB (CK-2) Rel Index Troponin T 3.970 H* D HDL Cholesterol Ur Specific [place] 1.031 H 06/17/17 06/17/17 09:44 09:44 WBC 12.0 H Hgb MCV 96 H MCH 33 H MCHC Eosinophils % (Manual) Eosinophils # (Manual) APTT Heparin Anti-Xa Level Potassium 3.4 L BUN Creatinine Glucose 117 H Calcium 8.3 L Total Creatine Kinase 1159 H CK-MB (CK-2) 42.2 H CK-MB (CK-2) Rel Index Troponin T 2.130 H* D HDL Cholesterol Ur Specific [place] Allied health notes reviewed: nursing
[2017-06-17] MEDS: ASPIRIN PO SCH (11:36)
[2017-06-17] MEDS ORDERED: Fluarix Quad 2017-2018(36 MOS+ IM ONE (12:00)
[2017-06-18 09:04] VITALS: BP 99/60
[2017-06-18] MEDS: ASPIRIN PO SCH (09:28)
[2017-06-18] MEDS: LOPRESSOR PO SCH (09:28)
[2017-06-18] MEDS: PLAVIX PO SCH (09:28)
--- NOTE | 2017-06-18 10:34 | Discharge Summary ---
Providers - Providers Date of Admission: 06/16/17 04:44 Date of discharge: 06/18/17 Attending physician: DARRION RIOS 06/16/17 04:46 Consult to Cardiac Rehabilitation [CONS] Routine Reason For Exam: Cardiac Rehab Evaluation 06/16/17 04:55 Consult to Physician [CONS] Routine Consulting Provider: BRIAN SPANGLER Reason For Exam: acute mi Place consult to:: Calvin Notified:: yes Was contact made?: No If yes, spoke with:: Dr Spangler Time called:: 08:18 Primary care physician: EDWARD SAM Hospitalization Reason for admission: STEMI Condition: Serious Pertinent studies: LHC and echo - see reports Procedures: [facility] with PCI and echo - see reports Hospital course: Pt is a 36-year-old male who presented to the emergency department on 2016 with complaints of chest pain. Admission EKG showed significant ST elevation in anterior leads c/w anteroseptal injury and thus pt was taken [facility] for emergent coronary angiography. Pt subsequently underwent PCI of high mid LAD/mid LAD with CHRIS. Echo following PCI showed EF 45-50%, mid anteroseptal, apical septal, apical anterior and apical lateral wall segments hypokinetic. Pt remaines clinically and hemodynamically stable throughout hospitalization and is medically stable for discharge home today. Pt currently resides in [place], [place], and intends to return back there this week. He is to follow up in our [place] office with Dr. NHUNG Maxwell on 06/20/2017 at 2:30PM prior to travelling back to [place]. He then states he will establish cardiology care in [place]. Disposition: DC-01 TO HOME OR SELFCARE - Discharge Diagnoses (1) Acute ST elevation myocardial infarction (STEMI) of anteroseptal wall Status: Acute (2) CAD (coronary artery disease) Status: Chronic (3) Stented coronary artery Status: Chronic (4) NSVT (nonsustained ventricular tachycardia) Status: Acute (5) Tobacco use Status: Chronic Core Measure Documentation - Palliative Care Palliative Care/ Comfort Measures: Not Applicable - Core Measures Any of the following diagnoses?: acute PR - Acute PR Discharge Requirements Aspirin at discharge: Yes KEYUR/ARB for LVSD if EF <40%: Not Applicable Beta yevgeniy at discharge: Yes Statin for LDL = or >100 mg/dl on DC: Yes Exam - Constitutional Vitals: Temp Pulse Resp BP Pulse Ox 98.9 F 77 18 99/60 98 06/18/17 09:03 06/18/17 09:28 06/18/17 09:03 06/18/17 09:28 06/18/17 10:00 General appearance: Present: no acute distress - EENT Eyes: Present: PERRL, EOM intact ENT: hearing intact, clear oral mucosa, dentition normal - Neck Neck: Present: supple, normal ROM - Respiratory Respiratory effort: normal - Cardiovascular Rhythm: regular Heart Sounds: Present: S1 & S2 - Extremities Extremities: no ischemia, pulses intact, pulses symmetrical, No edema, normal temperature, normal color, Full ROM Peripheral Pulses: within normal limits - Abdominal General gastrointestinal: Present: soft, non-tender - Integumentary Integumentary: Present: clear, warm, dry - Musculoskeletal Musculoskeletal: strength equal bilaterally - Psychiatric Psychiatric: appropriate mood/affect Plan Activity: advance as tolerated Diet: low fat, low cholesterol, low salt Wound: open to air, keep clean and dry, per your surgeon's advice Follow up with: EDWARD SAM MD [Primary Care Provider] - 3-5 Days CARO MAXWELL MD [Staff Physician] - 7 Days (06/20/2017 @ 2:30PM in [facility]) Prescriptions: RX: AtorvaSTATin [Lipitor] 80 mg PO QHS #30 tablet RX: Clopidogrel [Plavix] 75 mg PO QDAY #30 tablet RX: Metoprolol [Lopressor TAB] 50 mg PO BID #60 tablet
== END 2017-06-18 11:51 | disposition home or self-care (01) | DRG 249 ==
LOC: ED 01:46 → CC1 04:44 → 4A 06-17 13:38
PROVIDERS: ADMIT Internal Medicine; ATTEND Internal Medicine
PROC: 02703DZ Dilation of Coronary Artery, One Artery with Intraluminal Device, Percutaneous Approach (ICD-10-PCS; principal; 2017-06-16)
PROC: 4A023N7 Measurement of Cardiac Sampling and Pressure, Left Heart, Percutaneous Approach (ICD-10-PCS; 2017-06-16)
PROC: B2111ZZ Fluoroscopy of Multiple Coronary Arteries using Low Osmolar Contrast (ICD-10-PCS; 2017-06-16)
PROC: B2151ZZ Fluoroscopy of Left Heart using Low Osmolar Contrast (ICD-10-PCS; 2017-06-16)
PROC: 3E0234Z Introduction of Serum, Toxoid and Vaccine into Muscle, Percutaneous Approach (ICD-10-PCS; 2017-06-17)
DX: I21.29 ST elevation (STEMI) myocardial infarction involving other sites (principal); I47.2 Ventricular tachycardia; Z90.49 Acquired absence of other specified parts of digestive tract; F17.290 Nicotine dependence, other tobacco product, uncomplicated; I25.10 Atherosclerotic heart disease of native coronary artery without angina pectoris; Z23 Encounter for immunization
CPT/HCPCS: 36415; 71010; 80048; 80061; 80307; 81001; 82550; 82553; 83735; 84484; 85007; 85025; 85027; 85347; 85520; 85610; 85730; 86850; 86900; 86901; 90686; 92941; 93005; 93010; 93306; 93458; 94760; 96374; A9270-GY; C1725; C1769; C1874; C1887; C1894; C9606; J0130; J1644; J2250; J2270; J3010; J7030; J7040; J7050; Q9967